=== PATIENT | female | born 2000 | race Caucasian/White ===

== ENCOUNTER 2023-02-07 12:25 | Emergency (ER) | payer MEDICAID ==
[~2023-02-07] VITALS: Ht 167.6 cm; Wt 57.2 kg
[2023-02-07 12:58] VITALS: BP 108/66
[2023-02-07 17:50] VITALS: BP 110/64
--- NOTE | 2023-02-07 19:01 | NUR ---
Patient discharged with v/s stable. Written and verbal after care instructions given and explained. Patient verbalized understanding. Ambulatory with steady gait. All questions addressed prior to discharge. Advised to follow up with PMD. PT. INST. TO COME BACK TO ER IF BLEEDING INCREASES. NO ACUTE DISTRESS. NO DISTRESS
== END 2023-02-07 19:01 | disposition home or self-care (01) ==
LOC: MED 12:25
DX: O03.4 Incomplete spontaneous abortion without complication (principal); Z3A.09 9 weeks gestation of pregnancy
CPT/HCPCS: 76801; 99284; Q0092

== ENCOUNTER 2023-06-01 14:16 | Emergency (ER) | payer MEDICAID ==
[~2023-06-01] VITALS: Ht 167.6 cm; Wt 59.1 kg
[2023-06-01 14:29] VITALS: BP 128/77; PULSE 67; RESP 20; TEMP 98
[2023-06-01 16:32] LABS: BASOPHILS % (AUTO) 0.4 % (0.0-2.0); EOSINOPHILS % (AUTO) 0.8 % (0.0-4.0); HEMATOCRIT 42.6 % (36-48); HEMOGLOBIN 14.3 g/dL (12.0-16.0); LYMPHOCYTES # (AUTO) 2.2 K/uL (2.5-16.5); LYMPHOCYTES % (AUTO) 38.9 % (20.5-51.1); MEAN CORPUSCULAR HEMOGLOBIN 30 pg (27-31); MEAN CORPUSCULAR HGB CONC 34 g/dL (33-37); MEAN CORPUSCULAR VOLUME 88.2 fL (80-94); MONOCYTES # (AUTO) 0.4 K/uL (0.8-1.0); MONOCYTES % (AUTO) 7.1 % (1.7-9.3); NEUTROPHILS # (AUTO) 3.1 K/uL (1.8-7.7); NEUTROPHILS % (AUTO) 52.8 % (42.2-75.2); PLATELET COUNT (AUTO) 244 K/uL (140-450); RED BLOOD CELL COUNT(AUTO) 4.83 MIL/uL (4.20-5.40); RED CELL DISTRIBUTION WIDTH 12.7 % (11.6-13.7); WHITE BLOOD COUNT (AUTO) 5.8 K/uL (4.8-10.8)
[2023-06-01 16:44] LABS: ANION GAP 11.4 (8-16); CALCIUM 9.3 mg/dL (8.5-10.1); CARBON DIOXIDE 28.8 mmol/L (21-32); CREATININE 0.7 mg/dL (0.6-1.3); POTASSIUM 4.2 mmol/L (3.5-5.1)
[2023-06-01 19:55] VITALS: BP 128/77; PULSE 67; RESP 20; TEMP 98
[2023-06-01 21:49] LABS: APPEARANCE,URINE CLEAR (CLEAR); BILIRUBIN,URINE NEGATIVE (NEGATIVE); BLOOD, URINE 2+ (NEGATIVE); COLOR,URINE YELLOW (YELLOW); LEUKOCYTE ESTERASE ,URINE NEGATIVE (NEGATIVE); NITRITE, URINE NEGATIVE (NEGATIVE); PROTEIN,URINE NEGATIVE (NEGATIVE); UGLUCOSE NEGATIVE (NEGATIVE); UROBILINOGEN,URINE 0.2 EU/dL (0.2 - 1)
[2023-06-01 22:21] LABS: BACTERIA,URINE FEW /HPF (None Seen); RBC,URINE 0-5 /HPF (0-5); WBC,URINE NONE SEEN /HPF (0-5)
== END 2023-06-01 19:55 | disposition home or self-care (01) ==
LOC: MED 14:16
DX: N93.8 Other specified abnormal uterine and vaginal bleeding (principal); R50.9 Fever, unspecified; Z79.899 Other long term (current) drug therapy
CPT/HCPCS: 36415; 76805; 80048; 81001; 81025; 84702; 85025; 86886; 86900; 86901; 99284; Q0092